=== PATIENT | male | born 1970 | race Caucasian/White ===

== ENCOUNTER 2022-04-17 10:31 | Emergency (ER) | payer OTHER, BC ==
[~2022-04-17] VITALS: Ht 177.8 cm; Wt 74.8 kg
[2022-04-17 10:46] VITALS: BP_SYST 140
[2022-04-17 11:21] LABS: BASOPHILS # (AUTO) 0.3 K/uL (0.0-0.2); BASOPHILS % (AUTO) 4.5 % (0.0-2.0); EOSINOPHILS # (AUTO) 0.3 K/uL (0.0-0.4); EOSINOPHILS % (AUTO) 3.7 % (0.0-4.0); HEMATOCRIT 36.4 % (36-54); HEMOGLOBIN 12.5 g/dL (14.0-18.0); LYMPHOCYTES # (AUTO) 1.1 K/uL (1.0-5.5); LYMPHOCYTES % (AUTO) 15.1 % (20.5-51.5); MEAN CORPUSCULAR HEMOGLOBIN 31 pg (27-31); MEAN CORPUSCULAR HGB CONC 34 % (32-36); MEAN CORPUSCULAR VOLUME 91 fL (79.0-98.0); MONOCYTES # (AUTO) 0.2 K/uL (0.0-1.0); NEUTROPHILS # (AUTO) 5.5 K/uL (1.8-7.7); NEUTROPHILS % (AUTO) 73.7 % (40.0-70.0); PLATELET COUNT (AUTO) 264 K/uL (130-430); RED BLOOD CELL COUNT(AUTO) 4.01 MIL/uL (4.2-6.2); RED CELL DISTRIBUTION WIDTH 14.8 % (9.0-15.0); WHITE BLOOD COUNT (AUTO) 7.5 K/uL (4.8-10.8)
[2022-04-17 11:50] LABS: INR 0.9 (0.80-1.20); PROTHROMBIN TIME 9.3 SECS (9.5-12.5)
[2022-04-17 12:22] LABS: CALCIUM 8.4 mg/dL (8.4-11.0)
[2022-04-17 12:23] LABS: ALBUMIN 3.4 g/dL (3.4-4.8); CREATININE 0.91 mg/dL (0.55-1.30); TOTAL BILIRUBIN 0.3 mg/dL (0.0-1.0)
[2022-04-17 12:36] LABS: POTASSIUM 3.4 mmol/L (3.5-5.1)
[2022-04-17] MEDS ORDERED: fentaNYL CITRATE/PF 100 MCG/2 ML AMP IM ONE (13:00)
[2022-04-17 13:45] VITALS: BP_SYST 123
== END 2022-04-17 13:44 | disposition home or self-care (01) ==
LOC: SED 10:31
DX: S20.211A Contusion of right front wall of thorax, initial encounter (principal); R53.1 Weakness; Z91.048 Other nonmedicinal substance allergy status; Z79.899 Other long term (current) drug therapy; X58.XXXA Exposure to other specified factors, initial encounter; Y93.89 Activity, other specified; Y92.89 Other specified places as the place of occurrence of the external cause; Y99.8 Other external cause status
CPT/HCPCS: 99285; 71250; 71045; 80053; 82550; 85025; 85610; 36415; 93005; 76376; 96372; J3010